=== PATIENT | female | born 2005 | race Caucasian/White ===

== ENCOUNTER 2025-03-14 03:30 | Emergency (ER) | payer BC, SELFPAY ==
[2025-03-14 03:33] VITALS: BMI 23.2
[2025-03-14 03:40] VITALS: BP 105/68; PULSE 112; RESP 21; TEMP 36.7; O2SAT 98
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
[2025-03-14 06:09] LABS: Alcohol, Urine Positive (Negative); Amphetamine/Methamp Scrn,U Negative (Negative); Barbiturate Screen,Urine Negative (Negative); Benzodiazepines Screen,Urine Negative (Negative); Benzoylecgonine Screen, Ur Negative (Negative); Fentanyl Screen,Urine Negative (Negative); Opiate Screen,Urine Negative (Negative); THC Screen,Urine Negative (Negative)
[2025-03-14 06:18] LABS: HCG Qualitative,Urine Negative
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
== END 2025-03-14 09:36 | disposition home or self-care (01) ==
LOC: SERX 07:01
PROVIDERS: Physician Assistant; Emergency Provider Emergency Medicine
DX: F10.129 Alcohol abuse with intoxication, unspecified (principal); Y90.9 Presence of alcohol in blood, level not specified
CPT/HCPCS: 80307; 80320; 81025; 99283; G0480